=== PATIENT | female | born 1970 | race Caucasian/White ===

== ENCOUNTER 2021-03-20 20:45 | Inpatient (IN) | payer OTHER ==
[~2021-03-20] VITALS: Ht 180.3 cm; Wt 79.6 kg
[2021-03-20 20:46] VITALS: BP 108/57
[2021-03-20] MEDS ORDERED: HYDROCODON-ACE1 EAC7 PO (21:15)
[2021-03-20 21:27] LABS: HEMATOCRIT 45.4 % (37.0-47.0); MCH 30.2 pg (26.0-34.0); MCV 91.5 fL (80.0-100.0); MPV 8.2 fl. (7.2-11.1); RBC 4.96 mil/uL (4.20-5.00); RDW-CV 14.1 % (10.5-14.5)
[2021-03-20 21:31] LABS: CREATININE 0.9 mg/dL (0.6-1.3)
[2021-03-20 21:36] LABS: ALBUMIN 3.4 g/dL (3.4-5.0); TOTAL BILIRUBIN 0.3 mg/dL (<0.1-1.0); TOTAL PROTEIN 6.9 g/dL (6.4-8.2)
[2021-03-20 21:39] LABS: SALICYLATE 2.7 mg/dL (2.8-20.0)
--- NOTE | 2021-03-20 22:12 | NUR ---
SPOKE WITH [facility]. THE RECOMMENDATION IS TO START MUCOMYST IV. RECOMMENDATION RELAYED TO DR. INTERIANO.
--- NOTE | 2021-03-20 22:13 | NUR ---
PATIENT STATES SHE BELIEVES SHE TOOK THE HYDROCODONE AROUND 1900. PATIENT STATES SHE ONLY TOOK 3-4 TABLETS.
[2021-03-20 23:10] LABS: URINE BILIRUBIN NEGATIVE (Negative); URINE BLOOD NEGATIVE (Negative); URINE CLARITY CLEAR; URINE COLOR YELLOW; URINE GLUCOSE-RANDOM NEGATIVE (Negative); URINE KETONES NEGATIVE (Negative); URINE LEUKOCYTES 1+ (Negative); URINE NITRITE NEGATIVE (Negative); URINE PROTEIN NEGATIVE (Negative); URINE SPECIFIC GRAVITY 1.015 (1.005-1.030); URINE UROBILINOGEN 0.2 E.U./dl (0.2-1.0)
[2021-03-20 23:17] LABS: AMP/METHAMP Negative (Negative); BARBITURATES Negative (Negative); BENZODIAZEPINES POSITIVE (Negative); COCAINE Negative (Negative); METHADONE Negative (Negative); OPIATES POSITIVE (Negative); PCP Negative (Negative); THC Negative (Negative)
[2021-03-20 23:17] LABS: HYALINE CASTS 4-10 Moderate /LPF (None Seen); MUCUS 0-3 Light strn/LPF (None Seen); SQUAMOUS 0-3 Few /LPF (0-3)
[2021-03-20 23:18] LABS: BACTERIA >30 Many /HPF (None Seen); CRYSTALS None Seen /LPF (None Seen); URINE RBC None Seen /HPF (0-2)
[2021-03-21 03:15] VITALS: BP 114/57
--- NOTE | 2021-03-21 06:03 | NUR ---
UPDATE FROM [facility] IS TO DRAW A ALT/AST AND ACETAMINOPHEN LEVEL 2HOURS PRIOR TO THE COMPLETION OF THE MUCOMYST.
[2021-03-21 07:15] VITALS: BP 114/57
--- NOTE | 2021-03-21 09:17 | EKG ---
[place] [address] ELECTROCARDIOGRAM REPORT Name: SAVANNA FIERRO Room: [facility] ADM IN [facility]#: [id number] Admission: 03/20/21 Attend Phys: Kike Hahn Discharge: Date of : 72 Date of Service: 03/20/212104 Report #: [id number] THIS REPORT FOR: //name// [facility] ED Test Date: 2021-03-20 Test Time: 21:05:38 Pat Name: SAVANNA TERESA Department: Room: [facility] Gender: F Business Support Liaison: : 1970 Requested By: Rosemary Vieyra Order Number: [id number] MD: Krishna Castro Measurements Intervals [place] Rate: 80 P: 34 DC: 125 QRS: -11 QRSD: 82 T: 27 QT: 383 QTc: 442 Interpretive Statements Sinus rhythm No previous ECG available for comparison Electronically Signed On 03-21-2021 9:17:20 [employer] by Krishna Castro [email or web address] <ELECTRONICALLY SIGNED> By: Krishna Castro MD, [facility] 03/21/21 0917 04 04 Krishna Castro MD, [facility] /EPI
[2021-03-21 09:27] LABS: INR 1.1; PROTIME 11.3 Seconds (9.20-11.50)
[2021-03-21 10:01] LABS: ALBUMIN 3.4 g/dL (3.4-5.0); CALCIUM 8.7 mg/dL (8.5-10.1); CREATININE 0.7 mg/dL (0.6-1.3); MAGNESIUM 1.6 mg/dL (1.8-2.4); TOTAL BILIRUBIN 0.5 mg/dL (<0.1-1.0); TOTAL PROTEIN 6.6 g/dL (6.4-8.2)
[2021-03-21 11:15] VITALS: BP 114/32
[2021-03-21 15:15] VITALS: BP 120/42
--- NOTE | 2021-03-21 17:23 | NUR ---
CM ASSESSMENT ASSESSMENT COMPLETED WITH PT WHO WAS ALERT AND ORIENTED. PT LIVES IN HOME WITH FIANCE. PT HAS NO HX OF DME, HH, SNF, ARU. PT IND WITH ADLS. PT HAS NO DPOA AND IS NOT INTERESTED IN COMPLETING ONE. PT PENDING TELEPSYCH EVAL. JERRY AT [facility] WILLING TO REVIEW PT REFERRAL ONCE THE TELEPSYCH ASSESSMENT IS COMPLETE. REFERRAL CAN BE FAXED TO [phone]. CM TO FOLLOW.
[2021-03-21 18:46] LABS: SGOT 20 U/L (15-37); SGPT 28 U/L (30-65)
[2021-03-21 19:05] VITALS: BP 131/38
[2021-03-21 22:45] VITALS: BP 131/38
[2021-03-22 00:06] VITALS: BP 102/46
--- NOTE | 2021-03-22 03:53 | NUR ---
PT ARRIVED TO THE UNIT AT ABOUT 0030. A&O X 4. ON RA. VSS ON RA. SITTER AT BEDSIDE. WILL CONTINUE TO MONITOR.
[2021-03-22 04:00] VITALS: BP 106/54
[2021-03-22 04:25] LABS: HEMATOCRIT 42.6 % (37.0-47.0); HEMOGLOBIN 14.3 gm/dL (12.0-15.0); MCH 30.4 pg (26.0-34.0); MCHC 33.5 g/dL (28.0-37.0); MCV 90.7 fL (80.0-100.0); RBC 4.69 mil/uL (4.20-5.00); RDW-CV 14.1 % (10.5-14.5)
[2021-03-22 07:27] LABS: ALBUMIN 3.4 g/dL (3.4-5.0); CALCIUM 8.6 mg/dL (8.5-10.1); CREATININE 0.7 mg/dL (0.6-1.3); MAGNESIUM 1.7 mg/dL (1.8-2.4); POTASSIUM 3.6 mmol/L (3.5-5.1); TOTAL BILIRUBIN 0.7 mg/dL (<0.1-1.0); TOTAL PROTEIN 6.6 g/dL (6.4-8.2)
[2021-03-22] MEDS ORDERED: MACROBID 100 M100 M1 PO (08:29)
[2021-03-22 08:30] VITALS: BP 112/53
[2021-03-22 12:25] VITALS: BP 114/60
[2021-03-22 16:00] VITALS: BP 107/57
--- NOTE | 2021-03-22 17:18 | NUR ---
PT DC BY EMS TO INPT [facility]YCH AT [facility] AT 1710. REPORT CALLED AT 1715. IV REMOVED. PT STABLE UPON DC. PT FIANCE IN ROOM WHEN EMS ARRIVED.
== END 2021-03-22 17:22 | DRG 918 ==
LOC: M.ERS 20:45 → M.TBA-ER 23:15 → M.2W 23:15
PROVIDERS: Internal Medicine; Personal Emergency Response Attendant; ADMIT Internal Medicine; ATTEND Internal Medicine
DX: T39.1X2A Poisoning by 4-Aminophenol derivatives, intentional self-harm, initial encounter (principal); N39.0 Urinary tract infection, site not specified; F10.10 Alcohol abuse, uncomplicated; F90.9 Attention-deficit hyperactivity disorder, unspecified type; F13.10 Sedative, hypnotic or anxiolytic abuse, uncomplicated; T40.2X2A Poisoning by other opioids, intentional self-harm, initial encounter; F32.A Depression, unspecified; Z20.822 Contact with and (suspected) exposure to COVID-19; Z79.899 Other long term (current) drug therapy; Z79.891 Long term (current) use of opiate analgesic; Y92.89 Other specified places as the place of occurrence of the external cause